=== PATIENT | male | born 1980 | race Caucasian/White ===

== ENCOUNTER 2018-04-04 11:08 | Observation (INO) | payer MEDICARE, OTHER ==
[~2018-04-04] VITALS: Ht 165.1 cm; Wt 61.5 kg
[2018-04-04 12:17] LABS: BASO % 0 % (0-3); EOS # 0.1 x10^3/uL (0.0-0.7); EOS % 2 % (0-3); HEMATOCRIT 42.5 % (39.0-53.0); HEMOGLOBIN 14.9 g/dL (13.0-17.5); LYMPH # 0.7 x10^3/uL (1.0-4.8); LYMPH % 21 % (24-48); MEAN CORPUSCULAR HEMOGLOBIN 34 pg (25-35); MEAN CORPUSCULAR HGB CONC 35 g/dL (31-37); MEAN CORPUSCULAR VOLUME 97 fL (79-100); MONO # 0.2 x10^3/uL (0.0-1.1); MONO % 7 % (0-9); NEUT # 2.3 x10^3uL (1.8-7.7); NEUT % 69 % (31-73); PLATELET COUNT 171 x10^3/uL (140-400); RED BLOOD COUNT 4.36 x10^6/uL (4.30-5.70); WHITE BLOOD COUNT 3.3 x10^3/uL (4.0-11.0)
--- NOTE | 2018-04-04 12:23 | EKG ---
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
[2018-04-04 12:27] LABS: PROTHROMBIN TIME PATIENT 13.3 SEC (11.7-14.0)
[2018-04-04 12:28] LABS: CALCIUM 9.2 mg/dL (8.5-10.1); CREATININE 0.8 mg/dL (0.7-1.3); GFR 108.8; POTASSIUM 3.9 mmol/L (3.5-5.1)
--- NOTE | 2018-04-04 12:34 | RAD ---
PORTABLE CHEST 1V Clinical Indication: SHORTNESS OF BREATH AND CHEST PAIN X TODAY Comparison: None. Findings: Median sternotomy wires. A lead overlies the left lung apex, may be vagal nerve stimulator. The cardiomediastinal silhouette is normal. Lungs are clear. There is no pneumothorax. No pleural effusion is appreciated. No acute bone abnormality. IMPRESSION: No acute cardiopulmonary process. Electronically signed by: Azael Bill MD (04/04/2018 12:30 PM) [id number]
[2018-04-04 12:41] LABS: ALBUMIN/GLOBULIN RATIO 1.6 (1.0-1.7); TOTAL BILIRUBIN 0.2 mg/dL (0.2-1.0); TOTAL PROTEIN 6.5 g/dL (6.4-8.2)
[2018-04-04 12:42] LABS: D-DIMER < 0.27 ug/mlFEU (0.00-0.50)
[2018-04-04] MEDS ORDERED: IBUPROFEN 400 MG TABLET. PO PRN (14:45)
[2018-04-04] MEDS ORDERED: PROCHLORPERAZINE 10 MG/2 ML VIAL. IV PRN (14:45)
[2018-04-04] MEDS ORDERED: CALCIUM CARBONATE 500 MG TAB.CHEW PO PRN (14:45)
[2018-04-04] MEDS ORDERED: PROCHLORPERAZINE 25 MG SUPP.RECT. PR PRN (14:45)
[2018-04-04] MEDS ORDERED: MAG HYDROX/ALUMINUM HYD/SIMETH 30 ML ORAL.SUSP PO PRN (14:45)
[2018-04-04] MEDS ORDERED: ZOLPIDEM 5 MG TABLET. PO PRN (14:45)
[2018-04-04] MEDS ORDERED: oxyCODONE IR 5 MG TABLET PO PRN (14:45)
[2018-04-04] MEDS ORDERED: MAGNESIUM HYDROXIDE 2,400 MG/30 ML ORAL.SUSP. PO PRN (14:45)
[2018-04-04] MEDS ORDERED: BISACODYL 10 MG SUPP.RECT. PR PRN (14:45)
[2018-04-04] MEDS ORDERED: MORPHINE SULFATE 2 MG/ML VIAL. IV PRN (14:45)
[2018-04-04] MEDS ORDERED: ONDANSETRON PF 4 MG/2 ML VIAL. IV PRN (14:45)
[2018-04-04] MEDS ORDERED: ACETAMINOPHEN 325 MG TABLET. PO PRN (14:45)
--- NOTE | 2018-04-04 14:55 | PDOC1 ---
History and Physical Date of Admission Date of Admission DATE: 04/04/18 TIME: 14:49 Identification/Chief Complaint Chief Complaint chest pains while bowling Source Source: Caregiver, Chart review, Patient History of Present Illness History of Present Illness 38-year-old male, with history of seizures since age 11, follows with [facility] neurologist on and on antiepileptics, epigastric pain while blow bowling. He described as heavy, sharp, no associated diaphoresis or presyncopal symptoms but had SOA. Witnesses said he changed in color. This was not a seizure. His seizure would be partial seizures with LOC. He still gets seizures, last episode last month. Father at bedside, claims this was not a seizure episode. PAin reproducible on palpation. There were concerned about the change in his skin color during the episode, associated with some ST changes on EKG but first troponin negative. 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 Past Medical History CENTRAL NERVOUS SYSTEM: Seizure Past Surgical History Past Surgical History: Other (sub aortic stenosis underwent repair age 11) Family History Family History: Heart Disease Social History Smoke: No ALCOHOL: none Drugs: None Current Problem List Problem List Problems Medical Problems: (1) Chest pain Status: Acute Current Medications Current Medications Current Medications Aspirin (Children'S Aspirin) 324 mg 1X ONCE PO ; Start 04/04/18 at 15:00; Stop 04/04/18 at 15:01; Status UNV Allergies Allergies: Coded Allergies: No Known Drug Allergies (Unverified , 04/04/18) ROS Review of System As per history of present illness, the rest of ROS negative Physical Exam General: Alert, Oriented X3, Cooperative, No acute distress HEENT: Atraumatic, PERRLA, EOMI Lungs: Clear to auscultation, Normal air movement Heart: S1S2, RRR, no gallops, no murmurs Cardiovascular: S1, S2, Other (systolic murmur, mostly ejection click appreciated Rt ant chest border) Abdomen: Normal bowel sounds, Soft, No tenderness, No hepatosplenomegaly, No masses Male Genitals Exam: normal genitalia, normal prostate Rectal Exam: not examined Extremities: No clubbing, No cyanosis, No edema, Normal pulses, No tenderness/ swelling Skin: No rashes, No breakdown, No significant lesion Neuro: Normal gait, Normal speech, Strength at 5/5 X4 ext, Normal tone, Sensation intact, Cranial nerves 3-12 NL, Reflexes 2+ Psych/Mental Status: Mental status NL, Mood NL Vitals Vitals Vital Signs Date Time Temp Pulse Resp B/P (MAP) Pulse Ox O2 Delivery O2 Flow Rate FiO2 04/04/18 11:10 98.2 80 11 118/84 (95) 97 Room Air 98.2 Labs Labs Laboratory Tests Test 04/04/18 12:00 White Blood Count 3.3 x10^3/uL (4.0-11.0) Red Blood Count 4.36 x10^6/uL (4.30-5.70) Hemoglobin 14.9 g/dL (13.0-17.5) Hematocrit 42.5 % (39.0-53.0) Mean Corpuscular Volume 97 fL (79-100) Mean Corpuscular Hemoglobin 34 pg (25-35) Mean Corpuscular Hemoglobin Concent 35 g/dL (31-37) Red Cell Distribution Width 13.0 % (11.5-14.5) Platelet Count 171 x10^3/uL (140-400) Neutrophils (%) (Auto) 69 % (31-73) Lymphocytes (%) (Auto) 21 % (24-48) Monocytes (%) (Auto) 7 % (0-9) Eosinophils (%) (Auto) 2 % (0-3) Basophils (%) (Auto) 0 % (0-3) Neutrophils # (Auto) 2.3 x10^3uL (1.8-7.7) Lymphocytes # (Auto) 0.7 x10^3/uL (1.0-4.8) Monocytes # (Auto) 0.2 x10^3/uL (0.0-1.1) Eosinophils # (Auto) 0.1 x10^3/uL (0.0-0.7) Basophils # (Auto) 0.0 x10^3/uL (0.0-0.2) Prothrombin Time 13.3 SEC (11.7-14.0) Prothromb Time International Ratio 1.0 (0.8-1.1) D-Dimer (Winsome) < 0.27 ug/mlFEU Sodium Level 143 mmol/L (136-145) Potassium Level 3.9 mmol/L (3.5-5.1) Chloride Level 105 mmol/L (98-107) Carbon Dioxide Level 30 mmol/L (21-32) Anion Gap 8 (6-14) Blood Urea Nitrogen 16 mg/dL (8-26) Creatinine 0.8 mg/dL (0.7-1.3) Estimated GFR (Cockcroft-Gault) 108.8 BUN/Creatinine Ratio 20 (6-20) Glucose Level 150 mg/dL (70-99) Calcium Level 9.2 mg/dL (8.5-10.1) Total Bilirubin 0.2 mg/dL (0.2-1.0) Aspartate Amino Transf (AST/SGOT) 33 U/L (15-37) Alanine Aminotransferase (ALT/SGPT) 44 U/L (16-63) Alkaline Phosphatase 110 U/L (46-116) Troponin I Quantitative 0.027 ng/mL (0.000-0.055) SS-Htl-A-Type Natriuretic Peptide 19 pg/mL (0-124) Total Protein 6.5 g/dL (6.4-8.2) Albumin 4.0 g/dL (3.4-5.0) Albumin/Globulin Ratio 1.6 (1.0-1.7) Laboratory Tests Test 04/04/18 12:00 White Blood Count 3.3 x10^3/uL (4.0-11.0) Red Blood Count 4.36 x10^6/uL (4.30-5.70) Hemoglobin 14.9 g/dL (13.0-17.5) Hematocrit 42.5 % (39.0-53.0) Mean Corpuscular Volume 97 fL (79-100) Mean Corpuscular Hemoglobin 34 pg (25-35) Mean Corpuscular Hemoglobin Concent 35 g/dL (31-37) Red Cell Distribution Width 13.0 % (11.5-14.5) Platelet Count 171 x10^3/uL (140-400) Neutrophils (%) (Auto) 69 % (31-73) Lymphocytes (%) (Auto) 21 % (24-48) Monocytes (%) (Auto) 7 % (0-9) Eosinophils (%) (Auto) 2 % (0-3) Basophils (%) (Auto) 0 % (0-3) Neutrophils # (Auto) 2.3 x10^3uL (1.8-7.7) Lymphocytes # (Auto) 0.7 x10^3/uL (1.0-4.8) Monocytes # (Auto) 0.2 x10^3/uL (0.0-1.1) Eosinophils # (Auto) 0.1 x10^3/uL (0.0-0.7) Basophils # (Auto) 0.0 x10^3/uL (0.0-0.2) Prothrombin Time 13.3 SEC (11.7-14.0) Prothromb Time International Ratio 1.0 (0.8-1.1) D-Dimer (Winsome) < 0.27 ug/mlFEU Sodium Level 143 mmol/L (136-145) Potassium Level 3.9 mmol/L (3.5-5.1) Chloride Level 105 mmol/L (98-107) Carbon Dioxide Level 30 mmol/L (21-32) Anion Gap 8 (6-14) Blood Urea Nitrogen 16 mg/dL (8-26) Creatinine 0.8 mg/dL (0.7-1.3) Estimated GFR (Cockcroft-Gault) 108.8 BUN/Creatinine Ratio 20 (6-20) Glucose Level 150 mg/dL (70-99) Calcium Level 9.2 mg/dL (8.5-10.1) Total Bilirubin 0.2 mg/dL (0.2-1.0) Aspartate Amino Transf (AST/SGOT) 33 U/L (15-37) Alanine Aminotransferase (ALT/SGPT) 44 U/L (16-63) Alkaline Phosphatase 110 U/L (46-116) Troponin I Quantitative 0.027 ng/mL (0.000-0.055) VT-Dla-N-Type Natriuretic Peptide 19 pg/mL (0-124) Total Protein 6.5 g/dL (6.4-8.2) Albumin 4.0 g/dL (3.4-5.0) Albumin/Globulin Ratio 1.6 (1.0-1.7) VTE Prophylaxis Ordered VTE Prophylaxis Devices: Yes VTE Pharmacological Prophylaxi: Yes Assessment/Plan Assessment/Plan cheSt pain with borderline ST changes Epigastric pain likely MSK, costochondritis, reproducible on palpation History of subaortic stenosis status post surgical repair at age 11 Seizures, partial complex-on AEDs Systolic murmur, RT plan: Nothing by mouth until seen by cardiology 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
[2018-04-04] MEDS ORDERED: ASPIRIN CHEWABLE 81 MG TABLET. PO ONE (15:00)
--- NOTE | 2018-04-04 15:22 | EKG ---
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
--- NOTE | 2018-04-04 16:20 | PHYS DOC ---
Past Medical History Past Medical History: Seizure Past Surgical History: Other Alcohol Use: Rarely Drug Use: None Adult General Chief Complaint Chief Complaint: SHORTNESS OF BREATH HPI HPI Patient is a 38 year old male who is presenting with chest pain and shortness of breath. patient was bowling and developed fairly sudden onset of central chest pressure as well as some moderate shortness of breath is gradually improving. Patient has a history of subaortic stenosis which has been stable he tells me currently he is feeling a little bit better. Review of Systems Review of Systems Constitutional: Denies fever or chills [] Eyes: Denies change in visual acuity, redness, or eye pain [] HENT: Denies nasal congestion or sore throat [] Respiratory: Cardiovascular: No additional information not addressed in HPI [] GI: Denies abdominal pain, nausea, vomiting, bloody stools or diarrhea [] : Denies dysuria or hematuria [] Musculoskeletal: Denies back pain or joint pain [] Integument: Denies rash or skin lesions [] Neurologic: Denies headache, focal weakness or sensory changes [] Endocrine: Denies polyuria or polydipsia [] All other systems were reviewed and found to be within normal limits, except as documented in this note. Allergies Allergies Allergies Coded Allergies Type Severity Reaction Last Updated Verified No Known Drug Allergies 04/04/18 No Physical Exam Physical Exam Constitutional: Well developed, well nourished, no acute distress, non-toxic appearance. [] HENT: Normocephalic, atraumatic, bilateral external ears normal, oropharynx moist, no oral exudates, nose normal. [] Eyes: PERRLA, EOMI, conjunctiva normal, no discharge. [] Neck: Normal range of motion, no tenderness, supple, no stridor. [] Cardiovascular: Mild tachycardia to 3/6 systolic ejection murmur is noted. Lungs & Thorax: Bilateral breath sounds clear to auscultation [] Abdomen: Bowel sounds normal, soft, no tenderness, no masses, no pulsatile masses. [] Skin: Warm, dry, no erythema, no rash. [] Back: No tenderness, no CVA tenderness. [] Extremities: No tenderness, no cyanosis, no clubbing, ROM intact, no edema. [] Neurologic: Alert and oriented X 3, normal motor function, normal sensory function, no focal deficits noted. [] Psychologic: Affect normal, judgement normal, mood normal. [] Current Patient Data Vital Signs Vital Signs Date Time Temp Pulse Resp B/P (MAP) Pulse Ox O2 Delivery O2 Flow Rate FiO2 04/04/18 14:30 86 20 114/71 (85) 98 Room Air 04/04/18 11:10 98.2 98.2 Lab Values Laboratory Tests Test 04/04/18 12:00 04/04/18 14:30 White Blood Count 3.3 x10^3/uL (4.0-11.0) L Red Blood Count 4.36 x10^6/uL (4.30-5.70) Hemoglobin 14.9 g/dL (13.0-17.5) Hematocrit 42.5 % (39.0-53.0) Mean Corpuscular Volume 97 fL (79-100) Mean Corpuscular Hemoglobin 34 pg (25-35) Mean Corpuscular Hemoglobin Concent 35 g/dL (31-37) Red Cell Distribution Width 13.0 % (11.5-14.5) Platelet Count 171 x10^3/uL (140-400) Neutrophils (%) (Auto) 69 % (31-73) Lymphocytes (%) (Auto) 21 % (24-48) L Monocytes (%) (Auto) 7 % (0-9) Eosinophils (%) (Auto) 2 % (0-3) Basophils (%) (Auto) 0 % (0-3) Neutrophils # (Auto) 2.3 x10^3uL (1.8-7.7) Lymphocytes # (Auto) 0.7 x10^3/uL (1.0-4.8) L Monocytes # (Auto) 0.2 x10^3/uL (0.0-1.1) Eosinophils # (Auto) 0.1 x10^3/uL (0.0-0.7) Basophils # (Auto) 0.0 x10^3/uL (0.0-0.2) Prothrombin Time 13.3 SEC (11.7-14.0) Prothrombin Time INR 1.0 (0.8-1.1) D-Dimer (Winsome) < 0.27 ug/mlFEU Sodium Level 143 mmol/L (136-145) Potassium Level 3.9 mmol/L (3.5-5.1) Chloride Level 105 mmol/L (98-107) Carbon Dioxide Level 30 mmol/L (21-32) Anion Gap 8 (6-14) Blood Urea Nitrogen 16 mg/dL (8-26) Creatinine 0.8 mg/dL (0.7-1.3) Estimated GFR (Cockcroft-Gault) 108.8 BUN/Creatinine Ratio 20 (6-20) Glucose Level 150 mg/dL (70-99) H Calcium Level 9.2 mg/dL (8.5-10.1) Total Bilirubin 0.2 mg/dL (0.2-1.0) Aspartate Amino Transferase (AST) 33 U/L (15-37) Alanine Aminotransferase (ALT) 44 U/L (16-63) Alkaline Phosphatase 110 U/L (46-116) Troponin I Quantitative 0.027 ng/mL (0.000-0.055) 0.020 ng/mL (0.000-0.055) CU-Sgo-E-Type Natriuretic Peptide 19 pg/mL (0-124) Total Protein 6.5 g/dL (6.4-8.2) Albumin 4.0 g/dL (3.4-5.0) Albumin/Globulin Ratio 1.6 (1.0-1.7) Laboratory Tests 04/04/18 12:00 Laboratory Tests 04/04/18 12:00 EKG EKG EKG #1 shows normal sinus rhythm at a rate of [address] changes noted laterally there is some borderline ST depression actually but it is less than 1 mm repeat EKG done at[] Radiology/Procedures Radiology/Procedures [] Impressions: Comparison: None. Findings: Median sternotomy wires. A lead overlies the left lung apex, may be vagal nerve stimulator. The cardiomediastinal silhouette is normal. Lungs are clear. There is no pneumothorax. No pleural effusion is appreciated. No acute bone abnormality. IMPRESSION: No acute cardiopulmonary process. Electronically signed by: Azael Handley MD (04/04/2018 12:30 PM) [id number] DICTATED and SIGNED BY: AZAEL HANDLEY MD DATE: 04/04/18 1229 Course & Med Decision Making Course & Med Decision Making Pertinent Labs and Imaging studies reviewed. (See chart for details) []38-year-old male with a history of subaortic stenosis status post repair H 10 presenting with chest pain and shortness of breath has some nonspecific ST changes that she got better during the emergency room visit troponin has been negative so far d-dimer is negative this does not sound like a dissection or pulmonary embolism. Given the patient's underlying history and uncertain anatomy as well as the EKG changes I have consulted with admission termulo as well as [facility] cardiology. Lexus Disclaimer Dragon Disclaimer This electronic medical record was generated, in whole or in part, using a voice recognition dictation system. Departure Departure Impression: Primary Impression: Chest pain Disposition: 01 HOME, SELF-CARE Condition: STABLE Patient Instructions: Chest Pain (Nonspecific), [id number] ADÁN PRTETY MD Apr 04, 2018 16:20
--- NOTE | 2018-04-04 16:28 | PDOC2 ---
CARDIAC CONSULT DATE OF CONSULT Date of Consult DATE: 04/04/18 TIME: 16:08 REASON FOR CONSULT Reason for Consult: Chest pain, ST abnormality REFERRING PHYSICIAN Referring Physician: Glory SOURCE Source: Chart review, Patient HISTORY OF PRESENT ILLNESS HISTORY OF PRESENT ILLNESS This is a pleasant 38 yo male admitted for complains of chest pain and fast breathing. Reports that [place] [facility] [place] and was not [place] when his symptoms started. This was described as bruised feeling to his midchest that was nonradiating and felt that he was breathing fast and coul not catch his breath. No associated nausea or vomiting. No symptoms of palpitations. 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 He also has a ct scan tech Dr. Gar from who he saw over a yr ago to follow up on his congenital heart issue. Denies any exertional CP nor FOREMAN. He has been having seizures every week at least. He had his last seizure yesterday and lasting about 2-4 minutes with short postictal state lasting for few minutes. Yesterday he did not fall when he had his seizure. There was no preseizure symptoms and sometimes he shakes but most of the time he stiffens according to his father. He believes that he is stressed out primarily because of his seizure. He has not had any traumatic injury in relation to his seizure. No known recent adjustment to his medications. No hx of arrhythmias. PAST MEDICAL HISTORY Cardiovascular: Other (congenital Subaortic stenosis) Pulmonary: No pertinent hx CENTRAL NERVOUS SYSTEM: Seizure GI: Other (No pertinent history) Heme/Onc: No pertinent hx Hepatobiliary: No pertinent hx Psych: No pertinent hx Musculoskeletal: Other (no pertinent history) Rheumatologic: No pertinent hx Infectious disease: No pertinent hx ENT: No pertinent hx Renal/: No pertinent hx Endocrine: No pertinent hx Dermatology: No pertinent hx PAST SURGICAL HISTORY Past Surgical History: Other (vagal nerve stimulator which to him it did not work and his leads are still in place but the generator has been removed remotely; craniotomy for his seizure; open heart subaortic repair) FAMILY HISTORY Family History: Diabetes, Other (no heart disease) SOCIAL HISTORY Smoke: No ALCOHOL: rare Drugs: None Lives: with Family ALLERGIES ALLERGIES: Coded Allergies: No Known Drug Allergies (Unverified , 04/04/18) ROS Review of System 14 point ROS evaluated with pertinent positives noted per HPI PHYSICAL EXAM General: Alert, Oriented X3, Cooperative, No acute distress HEENT: Mucous membr. moist/pink Lungs: Clear to auscultation, Normal air movement Heart: Regular rate (SR), Normal S1, Normal S2, Other (3/6 systolic murmur to LLS border) Abdomen: Soft, No tenderness Extremities: No cyanosis, No edema Skin: No breakdown, No significant lesion Neuro: Normal speech, Sensation intact Psych/Mental Status: Mental status NL, Mood NL MUSCULOSKELETAL: Full range of motion without pain VITALS VITALS Vital Signs Date Time Temp Pulse Resp B/P (MAP) Pulse Ox O2 Delivery O2 Flow Rate FiO2 04/04/18 11:10 98.2 80 11 118/84 (95) 97 Room Air 98.2 LABS Lab: Laboratory Tests Test 04/04/18 12:00 04/04/18 14:30 White Blood Count 3.3 x10^3/uL (4.0-11.0) Red Blood Count 4.36 x10^6/uL (4.30-5.70) Hemoglobin 14.9 g/dL (13.0-17.5) Hematocrit 42.5 % (39.0-53.0) Mean Corpuscular Volume 97 fL (79-100) Mean Corpuscular Hemoglobin 34 pg (25-35) Mean Corpuscular Hemoglobin Concent 35 g/dL (31-37) Red Cell Distribution Width 13.0 % (11.5-14.5) Platelet Count 171 x10^3/uL (140-400) Neutrophils (%) (Auto) 69 % (31-73) Lymphocytes (%) (Auto) 21 % (24-48) Monocytes (%) (Auto) 7 % (0-9) Eosinophils (%) (Auto) 2 % (0-3) Basophils (%) (Auto) 0 % (0-3) Neutrophils # (Auto) 2.3 x10^3uL (1.8-7.7) Lymphocytes # (Auto) 0.7 x10^3/uL (1.0-4.8) Monocytes # (Auto) 0.2 x10^3/uL (0.0-1.1) Eosinophils # (Auto) 0.1 x10^3/uL (0.0-0.7) Basophils # (Auto) 0.0 x10^3/uL (0.0-0.2) Prothrombin Time 13.3 SEC (11.7-14.0) Prothromb Time International Ratio 1.0 (0.8-1.1) D-Dimer (Winsome) < 0.27 ug/mlFEU Sodium Level 143 mmol/L (136-145) Potassium Level 3.9 mmol/L (3.5-5.1) Chloride Level 105 mmol/L (98-107) Carbon Dioxide Level 30 mmol/L (21-32) Anion Gap 8 (6-14) Blood Urea Nitrogen 16 mg/dL (8-26) Creatinine 0.8 mg/dL (0.7-1.3) Estimated GFR (Cockcroft-Gault) 108.8 BUN/Creatinine Ratio 20 (6-20) Glucose Level 150 mg/dL (70-99) Calcium Level 9.2 mg/dL (8.5-10.1) Total Bilirubin 0.2 mg/dL (0.2-1.0) Aspartate Amino Transf (AST/SGOT) 33 U/L (15-37) Alanine Aminotransferase (ALT/SGPT) 44 U/L (16-63) Alkaline Phosphatase 110 U/L (46-116) Troponin I Quantitative 0.027 ng/mL (0.000-0.055) 0.020 ng/mL (0.000-0.055) IU-Mkw-D-Type Natriuretic Peptide 19 pg/mL (0-124) Total Protein 6.5 g/dL (6.4-8.2) Albumin 4.0 g/dL (3.4-5.0) Albumin/Globulin Ratio 1.6 (1.0-1.7) ASSESSMENT/PLAN ASSESSMENT/PLAN 1. Atypical CP: likely MSK/anxiety/panic. trop nml. EKG SR with nonspecific ST- T wave changes. 2. Seizure: 2-4 min episode occuring at least 1x/wk, resulting to lost of consciousness yesterday with post ictal state, no trauma 3. Hx of failed vagal nerve stimulator placed in 2000 4. Hx of congenital subaortic stenosis with open repair in 1990. Recommendations 1. Trend troponin. TTE today 2. Recommend neurology consult. LEE RASHID TURNTABLE WORKER Apr 04, 2018 16:28
--- NOTE | 2018-04-04 18:08 | CARD ---
MR#: [id number] Date of Study: 04/04/2018 Ordering Physician: ADÁN PRETTY, Referring Physician: MARIAJOSE DE JESUS Tech: Melissa Stark NAN APPROVED REPORT EXAM: Two-dimensional and M-mode echocardiogram with Doppler and color Doppler. Other Information Quality : GoodHR: 75bpm Rhythm : NSR INDICATION Chest Pain 2D DIMENSIONS RVDd2.7 (2.9-3.5cm)Left Atrium(2D)2.6 (1.6-4.0cm) IVSd1.0 (0.7-1.1cm)Aortic Root(2D)2.7 (2.0-3.7cm) LVDd4.7 (3.9-5.9cm)LVOT Diameter1.9 (1.8-2.4cm) PWd0.9 (0.7-1.1cm)LVDs3.1 (2.5-4.0cm) FS (%) 34.7 %SV66.6 ml LVEF(%)63.8 (>50%) M-Mode DIMENSIONS Left Atrium(MM)2.92 (2.5-4.0cm)Aortic Root2.92 (2.2-3.7cm) Aortic Valve AoV Peak Wilmer.197.4cm/sAoV VTI36.0cm AO Peak GR.15.6mmHgLVOT VTI 26.49cm AO Mean GR.7mmHgAVA (VMAX)2.01cm2 ANAMIKA (VTI)2.85yj6HO P 1/2 Klwn963yg Mitral Valve MV E Uachkpzn42.5cm/sMV DECEL [id number] MV A Jktnmkrq72.7cm/sE/A Ratio1.4 MV A Raxgqrmd74ru TDI Lateral E' P. V18.28cm/sMedial E' P. V13.06cm/s E/Lateral E'4.7E/Medial E'6.6 Tricuspid Valve TR P. Enazfbnl176tf/sRAP HERBXKGR8cwKd TR Peak Gr.09vdKlRHSK86nrSp LEFT VENTRICLE The left ventricle is normal size. There is normal left ventricular wall thickness. The left ventricu lar systolic function is normal and the ejection fraction is within normal range. The Ejection Fracti on is 60-65%. There is normal LV segmental wall motion. The left ventricular diastolic function and f illing is normal for age. RIGHT VENTRICLE The right ventricle is normal size. There is normal right ventricular wall thickness. The right ventr icular systolic function is normal. ATRIA The left atrium size is normal. The right atrium size is normal. The interatrial septum is intact wit h no evidence for an atrial septal defect or patent foramen ovale as noted on 2-D or Doppler imaging. AORTIC VALVE The aortic valve is mildly difficult to image. Doppler and Color Flow revealed trace aortic regurgita tion. There is no significant aortic valvular stenosis. MITRAL VALVE The mitral valve is normal in structure and function. There is no evidence of mitral valve prolapse. There is no mitral valve stenosis. Doppler and Color Flow revealed no mitral valve regurgitation note d. TRICUSPID VALVE The tricuspid valve is normal in structure and function. Doppler and Color Flow revealed trace tricus pid regurgitation. The PA pressure was estimated at 23 mmHg. There is no tricuspid valve prolapse or vegetation. There is no tricuspid valve stenosis. PULMONIC VALVE The pulmonary valve is normal in structure and function. Doppler and Color Flow revealed no pulmonic valvular regurgitation. There is no pulmonic valvular stenosis. GREAT VESSELS The aortic root is normal in size. The ascending aorta is normal in size. The IVC is normal in size a nd collapses >50% with inspiration. PERICARDIAL EFFUSION There is no evidence of significant pericardial effusion. Critical Notification Critical Value: No <Conclusion> The left ventricle is normal size. The left ventricular systolic function is normal and the ejection fraction is within normal range. The Ejection Fraction is 60-65%. There is no significant aortic valvular stenosis. Doppler and Color Flow revealed trace aortic regurgitation. Doppler and Color Flow revealed no mitral valve regurgitation noted. Doppler and Color Flow revealed trace tricuspid regurgitation. The PA pressure was estimated at 23 mmHg. Signed by : Maximilian Medellin MD Electronically Approved : 04/04/2018 18:07:16
[2018-04-04] MEDS ORDERED: CARB200T PO ×2 (18:37)
[2018-04-04] MEDS ORDERED: ESCITALOPRAM OX20 MG PO (18:37)
[2018-04-04] MEDS ORDERED: FELB600T PO (18:37)
[2018-04-04 19:58] VITALS: BP 108/57
[2018-04-04 23:08] VITALS: BP 127/76
[2018-04-05] MEDS ORDERED: FELBAMATE 400 MG TABLET PO SCH (00:15)
[2018-04-05] MEDS ORDERED: carBAMazepine 200 MG TABLET PO ONE ×2 (00:30)
[2018-04-05 03:54] VITALS: BP 130/83
[2018-04-05 06:55] LABS: CHOLESTEROL/HDL RATIO 3.6
[2018-04-05 07:00] VITALS: BP 130/82
--- NOTE | 2018-04-05 08:10 | PDOC ---
PROGRESS NOTES Chief Complaint Chief Complaint cheSt pain with borderline ST changes Epigastric pain likely MSK, costochondritis, reproducible on palpation History of subaortic stenosis status post surgical repair at age 11 Seizures, partial complex-on AEDs - last 04/05/18 Systolic murmur, RT History of Present Illness History of Present Illness 38-year-old male, with history of seizures since age 11, follows with [facility] neurologist on and on antiepileptics, epigastric pain while blow bowling. He described as heavy, sharp, no associated diaphoresis or presyncopal symptoms but had SOA. Witnesses said he changed in color. This was not a seizure. His seizure would be partial seizures with LOC. He still gets seizures, last episode last month. Father at bedside, claims this was not a seizure episode. Pain reproducible on palpation. There were concerned about the change in his skin color during the episode, associated with some ST changes on EKG but first troponin negative. 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 Echo performed 04/04/18: The left ventricle is normal size. The left ventricular systolic function is normal and the ejection fraction is within normal range. The Ejection Fraction is 60-65%. There is no significant aortic valvular stenosis. Doppler and Color Flow revealed trace aortic regurgitation. Doppler and Color Flow revealed no mitral valve regurgitation noted. Doppler and Color Flow revealed trace tricuspid regurgitation. The PA pressure was estimated at 23 mmHg. He is feeling much better no further shortness of breath, notes he was pretty anxious and excited as he bowled 6 strikes in a row at bowling and then a gutter -ball, that was when he experienced his episode. He and his father are comfortable with a discharge today Vitals Vitals Vital Signs Date Time Temp Pulse Resp B/P (MAP) Pulse Ox O2 Delivery O2 Flow Rate FiO2 04/05/18 03:54 98.0 77 16 130/83 (99) 98 Room Air 98.0 Physical Exam General: Alert, Oriented X3, Cooperative, No acute distress Heart: Regular rate (SR), Normal S1, Normal S2, Other (3/6 systolic murmur to LLS border) Abdomen: Soft, No tenderness Extremities: No cyanosis, No edema Skin: No breakdown, No significant lesion Labs LABS Laboratory Tests Test 04/04/18 12:00 04/04/18 14:30 04/04/18 17:50 04/05/18 00:05 White Blood Count 3.3 x10^3/uL (4.0-11.0) Red Blood Count 4.36 x10^6/uL (4.30-5.70) Hemoglobin 14.9 g/dL (13.0-17.5) Hematocrit 42.5 % (39.0-53.0) Mean Corpuscular Volume 97 fL (79-100) Mean Corpuscular Hemoglobin 34 pg (25-35) Mean Corpuscular Hemoglobin Concent 35 g/dL (31-37) Red Cell Distribution Width 13.0 % (11.5-14.5) Platelet Count 171 x10^3/uL (140-400) Neutrophils (%) (Auto) 69 % (31-73) Lymphocytes (%) (Auto) 21 % (24-48) Monocytes (%) (Auto) 7 % (0-9) Eosinophils (%) (Auto) 2 % (0-3) Basophils (%) (Auto) 0 % (0-3) Neutrophils # (Auto) 2.3 x10^3uL (1.8-7.7) Lymphocytes # (Auto) 0.7 x10^3/uL (1.0-4.8) Monocytes # (Auto) 0.2 x10^3/uL (0.0-1.1) Eosinophils # (Auto) 0.1 x10^3/uL (0.0-0.7) Basophils # (Auto) 0.0 x10^3/uL (0.0-0.2) Prothrombin Time 13.3 SEC (11.7-14.0) Prothromb Time International Ratio 1.0 (0.8-1.1) D-Dimer (Winsome) < 0.27 ug/mlFEU Sodium Level 143 mmol/L (136-145) Potassium Level 3.9 mmol/L (3.5-5.1) Chloride Level 105 mmol/L (98-107) Carbon Dioxide Level 30 mmol/L (21-32) Anion Gap 8 (6-14) Blood Urea Nitrogen 16 mg/dL (8-26) Creatinine 0.8 mg/dL (0.7-1.3) Estimated GFR (Cockcroft-Gault) 108.8 BUN/Creatinine Ratio 20 (6-20) Glucose Level 150 mg/dL (70-99) Calcium Level 9.2 mg/dL (8.5-10.1) Total Bilirubin 0.2 mg/dL (0.2-1.0) Aspartate Amino Transf (AST/SGOT) 33 U/L (15-37) Alanine Aminotransferase (ALT/SGPT) 44 U/L (16-63) Alkaline Phosphatase 110 U/L (46-116) Troponin I Quantitative 0.027 ng/mL (0.000-0.055) 0.020 ng/mL (0.000-0.055) 0.021 ng/mL (0.000-0.055) 0.018 ng/mL (0.000-0.055) YG-Bwq-W-Type Natriuretic Peptide 19 pg/mL (0-124) Total Protein 6.5 g/dL (6.4-8.2) Albumin 4.0 g/dL (3.4-5.0) Albumin/Globulin Ratio 1.6 (1.0-1.7) Test 04/05/18 05:55 Troponin I Quantitative 0.034 ng/mL (0.000-0.055) Triglycerides Level 103 mg/dL (0-150) Cholesterol Level 207 mg/dL (0-200) LDL Cholesterol, Calculated 128 mg/dL (0-100) VLDL Cholesterol, Calculated 21 mg/dL (0-40) Non-HDL Cholesterol Calculated 149 mg/dL (0-129) HDL Cholesterol 58 mg/dL (40-60) Cholesterol/HDL Ratio 3.6 Assessment and Plan Assessmemt and Plan Problems Medical Problems: (1) Chest pain Status: Acute Comment Review of Relevant I have reviewed the following items kerline (where applicable) has been applied. Labs Laboratory Tests Test 04/04/18 12:00 04/04/18 14:30 04/04/18 17:50 04/05/18 00:05 White Blood Count 3.3 x10^3/uL (4.0-11.0) Red Blood Count 4.36 x10^6/uL (4.30-5.70) Hemoglobin 14.9 g/dL (13.0-17.5) Hematocrit 42.5 % (39.0-53.0) Mean Corpuscular Volume 97 fL (79-100) Mean Corpuscular Hemoglobin 34 pg (25-35) Mean Corpuscular Hemoglobin Concent 35 g/dL (31-37) Red Cell Distribution Width 13.0 % (11.5-14.5) Platelet Count 171 x10^3/uL (140-400) Neutrophils (%) (Auto) 69 % (31-73) Lymphocytes (%) (Auto) 21 % (24-48) Monocytes (%) (Auto) 7 % (0-9) Eosinophils (%) (Auto) 2 % (0-3) Basophils (%) (Auto) 0 % (0-3) Neutrophils # (Auto) 2.3 x10^3uL (1.8-7.7) Lymphocytes # (Auto) 0.7 x10^3/uL (1.0-4.8) Monocytes # (Auto) 0.2 x10^3/uL (0.0-1.1) Eosinophils # (Auto) 0.1 x10^3/uL (0.0-0.7) Basophils # (Auto) 0.0 x10^3/uL (0.0-0.2) Prothrombin Time 13.3 SEC (11.7-14.0) Prothromb Time International Ratio 1.0 (0.8-1.1) D-Dimer (Winsome) < 0.27 ug/mlFEU Sodium Level 143 mmol/L (136-145) Potassium Level 3.9 mmol/L (3.5-5.1) Chloride Level 105 mmol/L (98-107) Carbon Dioxide Level 30 mmol/L (21-32) Anion Gap 8 (6-14) Blood Urea Nitrogen 16 mg/dL (8-26) Creatinine 0.8 mg/dL (0.7-1.3) Estimated GFR (Cockcroft-Gault) 108.8 BUN/Creatinine Ratio 20 (6-20) Glucose Level 150 mg/dL (70-99) Calcium Level 9.2 mg/dL (8.5-10.1) Total Bilirubin 0.2 mg/dL (0.2-1.0) Aspartate Amino Transf (AST/SGOT) 33 U/L (15-37) Alanine Aminotransferase (ALT/SGPT) 44 U/L (16-63) Alkaline Phosphatase 110 U/L (46-116) Troponin I Quantitative 0.027 ng/mL (0.000-0.055) 0.020 ng/mL (0.000-0.055) 0.021 ng/mL (0.000-0.055) 0.018 ng/mL (0.000-0.055) UF-Arb-K-Type Natriuretic Peptide 19 pg/mL (0-124) Total Protein 6.5 g/dL (6.4-8.2) Albumin 4.0 g/dL (3.4-5.0) Albumin/Globulin Ratio 1.6 (1.0-1.7) Test 04/05/18 05:55 Troponin I Quantitative 0.034 ng/mL (0.000-0.055) Triglycerides Level 103 mg/dL (0-150) Cholesterol Level 207 mg/dL (0-200) LDL Cholesterol, Calculated 128 mg/dL (0-100) VLDL Cholesterol, Calculated 21 mg/dL (0-40) Non-HDL Cholesterol Calculated 149 mg/dL (0-129) HDL Cholesterol 58 mg/dL (40-60) Cholesterol/HDL Ratio 3.6 Laboratory Tests Test 04/04/18 12:00 04/04/18 14:30 04/04/18 17:50 04/05/18 00:05 White Blood Count 3.3 x10^3/uL (4.0-11.0) Red Blood Count 4.36 x10^6/uL (4.30-5.70) Hemoglobin 14.9 g/dL (13.0-17.5) Hematocrit 42.5 % (39.0-53.0) Mean Corpuscular Volume 97 fL (79-100) Mean Corpuscular Hemoglobin 34 pg (25-35) Mean Corpuscular Hemoglobin Concent 35 g/dL (31-37) Red Cell Distribution Width 13.0 % (11.5-14.5) Platelet Count 171 x10^3/uL (140-400) Neutrophils (%) (Auto) 69 % (31-73) Lymphocytes (%) (Auto) 21 % (24-48) Monocytes (%) (Auto) 7 % (0-9) Eosinophils (%) (Auto) 2 % (0-3) Basophils (%) (Auto) 0 % (0-3) Neutrophils # (Auto) 2.3 x10^3uL (1.8-7.7) Lymphocytes # (Auto) 0.7 x10^3/uL (1.0-4.8) Monocytes # (Auto) 0.2 x10^3/uL (0.0-1.1) Eosinophils # (Auto) 0.1 x10^3/uL (0.0-0.7) Basophils # (Auto) 0.0 x10^3/uL (0.0-0.2) Prothrombin Time 13.3 SEC (11.7-14.0) Prothromb Time International Ratio 1.0 (0.8-1.1) D-Dimer (Winsome) < 0.27 ug/mlFEU Sodium Level 143 mmol/L (136-145) Potassium Level 3.9 mmol/L (3.5-5.1) Chloride Level 105 mmol/L (98-107) Carbon Dioxide Level 30 mmol/L (21-32) Anion Gap 8 (6-14) Blood Urea Nitrogen 16 mg/dL (8-26) Creatinine 0.8 mg/dL (0.7-1.3) Estimated GFR (Cockcroft-Gault) 108.8 BUN/Creatinine Ratio 20 (6-20) Glucose Level 150 mg/dL (70-99) Calcium Level 9.2 mg/dL (8.5-10.1) Total Bilirubin 0.2 mg/dL (0.2-1.0) Aspartate Amino Transf (AST/SGOT) 33 U/L (15-37) Alanine Aminotransferase (ALT/SGPT) 44 U/L (16-63) Alkaline Phosphatase 110 U/L (46-116) Troponin I Quantitative 0.027 ng/mL (0.000-0.055) 0.020 ng/mL (0.000-0.055) 0.021 ng/mL (0.000-0.055) 0.018 ng/mL (0.000-0.055) TX-Evx-I-Type Natriuretic Peptide 19 pg/mL (0-124) Total Protein 6.5 g/dL (6.4-8.2) Albumin 4.0 g/dL (3.4-5.0) Albumin/Globulin Ratio 1.6 (1.0-1.7) Test 04/05/18 05:55 Troponin I Quantitative 0.034 ng/mL (0.000-0.055) Triglycerides Level 103 mg/dL (0-150) Cholesterol Level 207 mg/dL (0-200) LDL Cholesterol, Calculated 128 mg/dL (0-100) VLDL Cholesterol, Calculated 21 mg/dL (0-40) Non-HDL Cholesterol Calculated 149 mg/dL (0-129) HDL Cholesterol 58 mg/dL (40-60) Cholesterol/HDL Ratio 3.6 Medications Current Medications Aspirin (Children'S Aspirin) 324 mg 1X ONCE PO Last administered on at 18:19; Start 04/04/18 at 15:00; Stop 04/04/18 at 15:06; Status DC Ondansetron HCl (Zofran) 4 mg PRN Q6HRS PRN IV NAUSEA/VOMITING; Start at 14:45 Prochlorperazine Edisylate (Compazine) 10 mg PRN Q6HRS PRN IV NAUSEA/VOMITING; Start 04/04/18 at 14:45 Prochlorperazine (Compazine) 25 mg PRN Q12HR PRN [place] NAUSEA/VOMITING; Start at 14:45 Al Hydroxide/Mg Hydroxide (Mylanta Plus Xs) 30 ml PRN Q3HRS PRN PO HEARTBURN / GAS; Start 04/04/18 at 14:45 Calcium Carbonate/ Glycine (Tums) 500 mg PRN Q3HRS PRN PO UPSET STOMACH; Start 04/04/18 at 14:45 Zolpidem Tartrate (Ambien) 5 mg PRN QHS PRN PO INSOMNIA, MAY REPEAT IN 1HR; Start 04/04/18 at 14:45 Oxycodone HCl (Roxicodone) 5 mg PRN Q3HRS PRN PO BREAKTHROUGH PAIN; Start at 14:45 Morphine Sulfate (Morphine Sulfate) 1 mg PRN Q1HR PRN IV PAIN; Start 04/04/18 at 14:45 Acetaminophen (Tylenol) 650 mg PRN Q6HRS PRN PO Headaches, Temp > 101.5F; Start 04/04/18 at 14:45 Ibuprofen (Motrin) 400 mg PRN Q6HRS PRN PO MILD PAIN; Start 04/04/18 at 14:45 Magnesium Hydroxide (Milk Of Magnesia) 2,400 mg PRN Q12HR PRN PO CONSTIPATION; Start 04/04/18 at 14:45 Bisacodyl (Dulcolax Supp) 10 mg PRN DAILY PRN [place] CONSTIPATION; Start 04/04/18 at 14:45 Lorazepam (Ativan) 2 mg PRN Q4HRS PRN IV ANXIETY / AGITATION; Start 04/04/18 at 15:00 Carbamazepine (TEGretol) 600 mg 1X ONCE PO Last administered on 04/05/18at 00: 23; Start 04/05/18 at 00:30; Stop 04/05/18 at 00:31; Status DC Carbamazepine (TEGretol) 200 mg 1X ONCE PO Last administered on 04/05/18at 00: 23; Start 04/05/18 at 00:30; Stop 04/05/18 at 00:31; Status DC Carbamazepine (TEGretol) 800 mg Q12H PO ; Start 04/05/18 at 12:00 Carbamazepine (TEGretol) 200 mg DAILY16 PO ; Start 04/05/18 at 16:00 Citalopram Hydrobromide (CeleXA) 40 mg DAILY16 PO ; Start 04/05/18 at 16:00 Felbamate (Felbatol) 1,200 mg TID@0000,1200,1600 PO Last administered on at 00:23; Start 04/05/18 at 00:15 Active Scripts Active Reported Tegretol (Carbamazepine) 200 Mg Tablet 1 Tab PO TID Tegretol (Carbamazepine) 200 Mg Tablet 300 Mg PO BID Felbatol (Felbamate) 600 Mg Tablet 600 Mg PO TID Escitalopram Oxalate 20 Mg Tablet 1 Tab PO DAILY Vitals/I & O Vital Sign - Last 24 Hours 04/04/18 04/04/18 04/04/18 04/04/18 11:10 11:30 12:00 12:30 Temp 98.2 98.2 Pulse 80 100 92 96 Resp 11 25 16 16 B/P (MAP) 118/84 (95) 118/57 (77) 110/60 (77) 112/70 (84) Pulse Ox 97 100 95 96 O2 Delivery Room Air Room Air Room Air Room Air 04/04/18 04/04/18 04/04/18 04/04/18 13:00 14:00 14:30 15:00 Pulse 94 90 86 80 Resp 16 18 20 14 B/P (MAP) 117/74 (88) 114/76 (89) 114/71 (85) 124/68 (86) Pulse Ox 96 97 98 97 O2 Delivery Room Air Room Air Room Air Room Air 04/04/18 04/04/18 04/04/18 04/04/18 15:30 16:00 16:55 19:58 Temp 98.4 98.4 Pulse 74 82 68 Resp 15 20 16 B/P (MAP) 110/63 (79) 113/74 (87) 108/57 (74) Pulse Ox 97 100 97 O2 Delivery Room Air Room Air Room Air Room Air 04/04/18 04/04/18 04/05/18 20:00 23:08 03:54 Temp 99.3 98.0 99.3 98.0 Pulse 74 77 Resp 16 16 B/P (MAP) 127/76 (93) 130/83 (99) Pulse Ox 99 98 O2 Delivery Room Air Room Air Room Air Intake and Output 04/04/18 04/04/18 04/05/18 15:00 23:00 07:00 Intake Total 210 ml 200 ml Output Total 775 ml Balance 210 ml -575 ml CELIA ALCANTARA MD Apr 05, 2018 08:10
--- NOTE | 2018-04-05 10:05 | PDOC3 ---
Discharge Summary Visit Information Date of Admission: Apr 04, 2018 Date of Discharge: Apr 05, 2018 Admitting Diagnosis: Chest pain, shortness of breath, seizure Final Diagnosis Problems Medical Problems: (1) Chest pain Status: Acute Brief Hospital Course Allergies Allergies Coded Allergies Type Severity Reaction Last Updated Verified No Known Drug Allergies 04/04/18 No Vital Signs Vital Signs Date Time Temp Pulse Resp B/P (MAP) Pulse Ox O2 Delivery O2 Flow Rate FiO2 04/05/18 08:00 Room Air 04/05/18 07:00 98.2 82 16 130/82 (98) 97 98.2 Lab Results Laboratory Tests Test 04/04/18 12:00 04/04/18 14:30 04/04/18 17:50 04/05/18 00:05 White Blood Count 3.3 x10^3/uL (4.0-11.0) Red Blood Count 4.36 x10^6/uL (4.30-5.70) Hemoglobin 14.9 g/dL (13.0-17.5) Hematocrit 42.5 % (39.0-53.0) Mean Corpuscular Volume 97 fL (79-100) Mean Corpuscular Hemoglobin 34 pg (25-35) Mean Corpuscular Hemoglobin Concent 35 g/dL (31-37) Red Cell Distribution Width 13.0 % (11.5-14.5) Platelet Count 171 x10^3/uL (140-400) Neutrophils (%) (Auto) 69 % (31-73) Lymphocytes (%) (Auto) 21 % (24-48) Monocytes (%) (Auto) 7 % (0-9) Eosinophils (%) (Auto) 2 % (0-3) Basophils (%) (Auto) 0 % (0-3) Neutrophils # (Auto) 2.3 x10^3uL (1.8-7.7) Lymphocytes # (Auto) 0.7 x10^3/uL (1.0-4.8) Monocytes # (Auto) 0.2 x10^3/uL (0.0-1.1) Eosinophils # (Auto) 0.1 x10^3/uL (0.0-0.7) Basophils # (Auto) 0.0 x10^3/uL (0.0-0.2) Prothrombin Time 13.3 SEC (11.7-14.0) Prothromb Time International Ratio 1.0 (0.8-1.1) D-Dimer ([place]ome) < 0.27 ug/mlFEU Sodium Level 143 mmol/L (136-145) Potassium Level 3.9 mmol/L (3.5-5.1) Chloride Level 105 mmol/L (98-107) Carbon Dioxide Level 30 mmol/L (21-32) Anion Gap 8 (6-14) Blood Urea Nitrogen 16 mg/dL (8-26) Creatinine 0.8 mg/dL (0.7-1.3) Estimated GFR (Cockcroft-Gault) 108.8 BUN/Creatinine Ratio 20 (6-20) Glucose Level 150 mg/dL (70-99) Calcium Level 9.2 mg/dL (8.5-10.1) Total Bilirubin 0.2 mg/dL (0.2-1.0) Aspartate Amino Transf (AST/SGOT) 33 U/L (15-37) Alanine Aminotransferase (ALT/SGPT) 44 U/L (16-63) Alkaline Phosphatase 110 U/L (46-116) Troponin I Quantitative 0.027 ng/mL (0.000-0.055) 0.020 ng/mL (0.000-0.055) 0.021 ng/mL (0.000-0.055) 0.018 ng/mL (0.000-0.055) BK-Akj-M-Type Natriuretic Peptide 19 pg/mL (0-124) Total Protein 6.5 g/dL (6.4-8.2) Albumin 4.0 g/dL (3.4-5.0) Albumin/Globulin Ratio 1.6 (1.0-1.7) Test 04/05/18 05:55 Troponin I Quantitative 0.034 ng/mL (0.000-0.055) Triglycerides Level 103 mg/dL (0-150) Cholesterol Level 207 mg/dL (0-200) LDL Cholesterol, Calculated 128 mg/dL (0-100) VLDL Cholesterol, Calculated 21 mg/dL (0-40) Non-HDL Cholesterol Calculated 149 mg/dL (0-129) HDL Cholesterol 58 mg/dL (40-60) Cholesterol/HDL Ratio 3.6 Laboratory Tests Test 04/04/18 12:00 04/04/18 14:30 04/04/18 17:50 04/05/18 00:05 White Blood Count 3.3 x10^3/uL (4.0-11.0) Red Blood Count 4.36 x10^6/uL (4.30-5.70) Hemoglobin 14.9 g/dL (13.0-17.5) Hematocrit 42.5 % (39.0-53.0) Mean Corpuscular Volume 97 fL (79-100) Mean Corpuscular Hemoglobin 34 pg (25-35) Mean Corpuscular Hemoglobin Concent 35 g/dL (31-37) Red Cell Distribution Width 13.0 % (11.5-14.5) Platelet Count 171 x10^3/uL (140-400) Neutrophils (%) (Auto) 69 % (31-73) Lymphocytes (%) (Auto) 21 % (24-48) Monocytes (%) (Auto) 7 % (0-9) Eosinophils (%) (Auto) 2 % (0-3) Basophils (%) (Auto) 0 % (0-3) Neutrophils # (Auto) 2.3 x10^3uL (1.8-7.7) Lymphocytes # (Auto) 0.7 x10^3/uL (1.0-4.8) Monocytes # (Auto) 0.2 x10^3/uL (0.0-1.1) Eosinophils # (Auto) 0.1 x10^3/uL (0.0-0.7) Basophils # (Auto) 0.0 x10^3/uL (0.0-0.2) Prothrombin Time 13.3 SEC (11.7-14.0) Prothromb Time International Ratio 1.0 (0.8-1.1) D-Dimer (Winsome) < 0.27 ug/mlFEU Sodium Level 143 mmol/L (136-145) Potassium Level 3.9 mmol/L (3.5-5.1) Chloride Level 105 mmol/L (98-107) Carbon Dioxide Level 30 mmol/L (21-32) Anion Gap 8 (6-14) Blood Urea Nitrogen 16 mg/dL (8-26) Creatinine 0.8 mg/dL (0.7-1.3) Estimated GFR (Cockcroft-Gault) 108.8 BUN/Creatinine Ratio 20 (6-20) Glucose Level 150 mg/dL (70-99) Calcium Level 9.2 mg/dL (8.5-10.1) Total Bilirubin 0.2 mg/dL (0.2-1.0) Aspartate Amino Transf (AST/SGOT) 33 U/L (15-37) Alanine Aminotransferase (ALT/SGPT) 44 U/L (16-63) Alkaline Phosphatase 110 U/L (46-116) Troponin I Quantitative 0.027 ng/mL (0.000-0.055) 0.020 ng/mL (0.000-0.055) 0.021 ng/mL (0.000-0.055) 0.018 ng/mL (0.000-0.055) EG-Jdc-F-Type Natriuretic Peptide 19 pg/mL (0-124) Total Protein 6.5 g/dL (6.4-8.2) Albumin 4.0 g/dL (3.4-5.0) Albumin/Globulin Ratio 1.6 (1.0-1.7) Test 04/05/18 05:55 Troponin I Quantitative 0.034 ng/mL (0.000-0.055) Triglycerides Level 103 mg/dL (0-150) Cholesterol Level 207 mg/dL (0-200) LDL Cholesterol, Calculated 128 mg/dL (0-100) VLDL Cholesterol, Calculated 21 mg/dL (0-40) Non-HDL Cholesterol Calculated 149 mg/dL (0-129) HDL Cholesterol 58 mg/dL (40-60) Cholesterol/HDL Ratio 3.6 Brief Hospital Course 38-year-old male, with history of seizures since age 11, follows with [facility] neurologist on and on antiepileptics, epigastric pain while blow bowling. He described as heavy, sharp, no associated diaphoresis or presyncopal symptoms but had SOA. Witnesses said he changed in color. This was not a seizure. His seizure would be partial seizures with LOC. He still gets seizures, last episode last month. Father at bedside, claims this was not a seizure episode. Pain reproducible on palpation. There were concerned about the change in his skin color during the episode, associated with some ST changes on EKG but first troponin negative. 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 Echo performed 04/04/18: The left ventricle is normal size. The left ventricular systolic function is normal and the ejection fraction is within normal range. The Ejection Fraction is 60-65%. There is no significant aortic valvular stenosis. Doppler and Color Flow revealed trace aortic regurgitation. Doppler and Color Flow revealed no mitral valve regurgitation noted. Doppler and Color Flow revealed trace tricuspid regurgitation. The PA pressure was estimated at 23 mmHg. He is feeling much better no further shortness of breath, notes he was pretty anxious and excited as he bowled 6 strikes in a row at bowling and then a gutter -ball, that was when he experienced his episode. 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 Systolic murmur, RT Discharge Information Condition at Discharge: Improved Follow Up: Weeks (1) Disposition/Orders: D/C to Home Scheduled Carbamazepine (Tegretol) 200 Mg Tablet, 300 MG PO BID for anticonvulsant, #60 Ref 1 (Reported) Entered as Reported by: LUIS JOHNSON on 04/04/181836 Last Action: New Order on 04/04/181836 by LUIS JOHNSON Carbamazepine (Tegretol) 200 Mg Tablet, 1 TAB PO TID for anticonvulsant, #60 Ref 1 (Reported) Entered as Reported by: LUIS JOHNSON on 04/04/181836 Last Action: New Order on 04/04/181836 by LUSI JOHNSON Escitalopram Oxalate (Escitalopram Oxalate) 20 Mg Tablet, 1 TAB PO DAILY for depression, #30 Ref 5 (Reported) Entered as Reported by: LUIS JOHNSON on 04/04/181836 Last Action: New Order on 04/04/181836 by LUIS JOHNSON Felbamate (Felbatol) 600 Mg Tablet, 600 MG PO TID for anticonvulsant, (Reported) Entered as Reported by: LUIS JOHNSON on 04/04/181836 Last Action: New Order on 04/04/181836 by CELIA ALTAMIRANO MD Apr 05, 2018 10:05
[2018-04-05 11:00] VITALS: BP 121/68
[2018-04-05] MEDS ORDERED: carBAMazepine 200 MG TABLET PO SCH ×2 (12:00→16:00)
[2018-04-05] MEDS ORDERED: CITALOPRAM 20 MG TABLET. PO SCH (16:00)
== END 2018-04-05 12:13 | disposition home or self-care (01) ==
LOC: ER 11:08 → CVICU 14:40 → 2 SOUTH 16:25
PROVIDERS: ADMIT Internal Medicine; ATTEND Internal Medicine
DX: R07.89 Other chest pain (principal); G40.209 Localization-related (focal) (partial) symptomatic epilepsy and epileptic syndromes with complex partial seizures, not intractable, without status epilepticus; Z79.82 Long term (current) use of aspirin; Z79.899 Other long term (current) drug therapy; Z82.0 Family history of epilepsy and other diseases of the nervous system; Z83.3 Family history of diabetes mellitus
CPT/HCPCS: 36415; 71045; 80053; 80061; 83880; 84484; 85025; 85379; 85610; 93005; 93306; 99284; G0378; G0379